=== PATIENT | male | born 1990 | race Caucasian/White ===

== ENCOUNTER 2023-05-18 16:49 | Emergency (ER) | payer OTHER, SELFPAY ==
[2023-05-18 16:55] VITALS: BP 150/89; PULSE 108; RESP 18; TEMP 36.8; O2SAT 97; BMI 28.2
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
[2023-05-18] MEDS: BACITRACIN 0.9 GM PACKET 1 PACKET TOPICAL (18:00)
[2023-05-18] MEDS: ADACEL DIPH,PERTUSS(ACELL),TET VAC/PF 0.5 ML ADULT SYRINGE IM (18:01)
[2023-05-18] MEDS: LIDOCAINE HCL 1%-EPINEPHRINE 1:100,000 20 ML MDV INJ (18:03)
== END 2023-05-18 19:55 | disposition home or self-care (01) ==
PROVIDERS: Emergency Provider Emergency Medicine; PCP Family Medicine
DX: S01.511A Laceration without foreign body of lip, initial encounter (principal); W22.8XXA Striking against or struck by other objects, initial encounter; Z23 Encounter for immunization
CPT/HCPCS: 12011; 90471; 90715; 99283